=== PATIENT | female | born 1945 | race Caucasian/White ===

== ENCOUNTER 2019-03-05 11:52 | Inpatient (IN) | payer MEDICAID ==
[~2019-03-05] VITALS: Ht 149.9 cm; Wt 58.7 kg
[2019-03-05 11:55] VITALS: BP 178/79
[2019-03-05] MEDS ORDERED: IBUP-2213 PO (12:15)
[2019-03-05] MEDS ORDERED: VANCOMYCIN 1GM/DEXT 5% PREMIX 200 ML IV ONE (12:25)
[2019-03-05] MEDS ORDERED: MORPHINE SULFATE 4 MG/ML SYR IVP ONE (12:25)
[2019-03-05] MEDS ORDERED: VANCOMYCIN PER PHARMACY MC PRN ×2 (12:25→15:40)
[2019-03-05] MEDS ORDERED: VANCOMYCIN 1,000 MG in DEXTROSE 5% 250 ML IV SCH (12:45)
[2019-03-05 12:50] LABS: BASOPHILS # (AUTO) 0.1 K/uL (0.00-0.22); BASOPHILS % (AUTO) 1.1 % (0.0-2.0); EOSINOPHILS # (AUTO) 0.2 K/uL (0-0.4); EOSINOPHILS % (AUTO) 1.8 % (0.0-4.0); HEMATOCRIT 39.7 % (36-48); HEMOGLOBIN 12.7 g/dL (12.0-16.0); LYMPHOCYTES # (AUTO) 2.7 K/uL (2.5-16.5); LYMPHOCYTES % (AUTO) 23.8 % (20.5-51.1); MEAN CORPUSCULAR HEMOGLOBIN 29 pg (27-31); MEAN CORPUSCULAR HGB CONC 32 g/dL (33-37); MEAN CORPUSCULAR VOLUME 90.6 fL (80-94); MONOCYTES # (AUTO) 0.8 K/uL (0.8-1.0); MONOCYTES % (AUTO) 7.1 % (1.7-9.3); NEUTROPHILS # (AUTO) 7.5 K/uL (1.8-7.7); NEUTROPHILS % (AUTO) 66.2 % (42.2-75.2); PLATELET COUNT (AUTO) 434 K/uL (140-450); RED BLOOD CELL COUNT(AUTO) 4.39 MIL/uL (4.20-5.40); RED CELL DISTRIBUTION WIDTH 15.1 % (11.6-13.7); WHITE BLOOD COUNT (AUTO) 11.3 K/uL (4.8-10.8)
[2019-03-05 13:05] LABS: ALBUMIN 3.9 g/dL (3.4-5.0); ANION GAP 13.4 (8-16); ASPARTATE AMINOTRANSFERASE 22 U/L (15-37); CARBON DIOXIDE 28.3 mmol/L (21-32); CHLORIDE 99 mmol/L (98-107); CREATININE 1.7 mg/dL (0.6-1.3); GLUCOSE 129 mg/dL (74-106); SODIUM SERUM 135 mmol/L (136-145); TOTAL BILIRUBIN 0.2 mg/dL (0.0-1.0); UREA NITROGEN, BLOOD 26 mg/dL (7-18)
[2019-03-05 13:09] LABS: POTASSIUM 5.7 mmol/L (3.5-5.1)
[2019-03-05] MEDS ORDERED: DEXTROSE 50% 50 ML SYR IVP ONE (13:40)
[2019-03-05] MEDS ORDERED: PATIROMER CALCIUM SORBITEX 8.4 GM PKT PO ONE (13:40)
[2019-03-05] MEDS ORDERED: INSULIN REGULAR, HUMAN 100 UNIT/ML VIAL IVP ONE (13:40)
[2019-03-05] MEDS ORDERED: SODIUM BICARBONATE 8.4% PFS 50 MEQ/50 ML SYR IVP ONE (13:40)
[2019-03-05] MEDS: NACL 0.9% 1,000 ML IV SCH (13:57)
[2019-03-05] MEDS ORDERED: ACETAMINOPHEN 325 MG TAB PO PRN (14:00)
[2019-03-05] MEDS ORDERED: ONDANSETRON 4 MG/2 ML VIAL IM/IVP PRN (14:00)
[2019-03-05] MEDS ORDERED: MORPHINE SULFATE 2 MG/ML SYR IVP PRN (14:00)
[2019-03-05] MEDS ORDERED: DOCUSATE SODIUM 100 MG GELCAP PO PRN (14:00)
[2019-03-05 15:20] VITALS: BP 129/56
[2019-03-05] MEDS ORDERED: DEXTROSE 50% 50 ML SYR IVP PRN (15:40)
[2019-03-05] MEDS ORDERED: INSULIN LISPRO SLIDING SCALE 100 UNITS/ML VIAL SUBQ PRN (15:40)
[2019-03-05] MEDS: BLOOD GLUCOSE MONITORING 1 DEV DEV FS SCH ×2 (16:30→20:38)
[2019-03-05 19:41] LABS: PROTHROMBIN TIME 9.9 secs (10.8-13.4)
[2019-03-05 19:56] LABS: CHOL/HDL RATIO 5.1 (1-4.5); MAGNESIUM 2.1 mg/dL (1.8-2.4); PHOSPHORUS 4.2 mg/dL (2.5-4.9); THYROID STIMULATING HORMONE 5.63 uIU/mL (0.34-3.74)
[2019-03-05 20:00] VITALS: BP 135/85
[2019-03-06] VITALS: BP 138/55
[2019-03-06] MEDS: NACL 0.9% 1,000 ML IV SCH ×2 (01:10→10:48)
[2019-03-06 04:00] VITALS: BP 157/71
[2019-03-06] MEDS: BLOOD GLUCOSE MONITORING 1 DEV DEV FS SCH ×4 (06:23→21:00)
[2019-03-06 08:00] VITALS: BP 147/70
[2019-03-06 08:23] LABS: BASOPHILS # (AUTO) 0.1 K/uL (0.00-0.22); BASOPHILS % (AUTO) 1.2 % (0.0-2.0); EOSINOPHILS # (AUTO) 0.2 K/uL (0-0.4); EOSINOPHILS % (AUTO) 2.7 % (0.0-4.0); HEMATOCRIT 36.6 % (36-48); HEMOGLOBIN 11.9 g/dL (12.0-16.0); LYMPHOCYTES # (AUTO) 2.6 K/uL (2.5-16.5); LYMPHOCYTES % (AUTO) 28.7 % (20.5-51.1); MEAN CORPUSCULAR HEMOGLOBIN 29 pg (27-31); MEAN CORPUSCULAR HGB CONC 33 g/dL (33-37); MONOCYTES # (AUTO) 0.6 K/uL (0.8-1.0); MONOCYTES % (AUTO) 6.8 % (1.7-9.3); NEUTROPHILS # (AUTO) 5.6 K/uL (1.8-7.7); NEUTROPHILS % (AUTO) 60.6 % (42.2-75.2); PLATELET COUNT (AUTO) 397 K/uL (140-450); RED BLOOD CELL COUNT(AUTO) 4.06 MIL/uL (4.20-5.40); RED CELL DISTRIBUTION WIDTH 14.9 % (11.6-13.7); WHITE BLOOD COUNT (AUTO) 9.2 K/uL (4.8-10.8)
[2019-03-06 08:53] LABS: ANION GAP 15.9 (8-16); CARBON DIOXIDE 24.3 mmol/L (21-32); CHLORIDE 101 mmol/L (98-107); CREATININE 1.2 mg/dL (0.6-1.3); GLUCOSE 114 mg/dL (74-106); POTASSIUM 5.2 mmol/L (3.5-5.1); SODIUM SERUM 136 mmol/L (136-145); UREA NITROGEN, BLOOD 22 mg/dL (7-18)
[2019-03-06 09:07] LABS: MAGNESIUM 2.1 mg/dL (1.8-2.4); PHOSPHORUS 4.2 mg/dL (2.5-4.9)
[2019-03-06] MEDS ORDERED: DEXTROSE 50% 50 ML SYR IVP SCH (12:00)
[2019-03-06] MEDS ORDERED: INSULIN REGULAR, HUMAN 100 UNIT/ML VIAL IVP SCH (12:00)
[2019-03-06] MEDS ORDERED: PATIROMER CALCIUM SORBITEX 8.4 GM PKT PO SCH (12:00)
[2019-03-06] MEDS ORDERED: MIDAZOLAM 2 MG/2 ML VIAL ONE (12:19)
[2019-03-06] MEDS ORDERED: MEPERIDINE 25 MG/ML SYR ONE ×2 (12:20→13:53)
[2019-03-06] MEDS: DEXT 5% /NACL 0.9% 1,000 ML IV SCH (12:20)
[2019-03-06] MEDS ORDERED: fentaNYL 0.05 MG/ML VIAL ONE (12:20)
[2019-03-06] MEDS ORDERED: BUPIVACAINE-MPF/EPI 0.25% 30 ML VIAL INJ ONE (12:21)
[2019-03-06] MEDS: BUPIVACAINE-MPF/EPI 0.5% 30 ML VIAL INJ ONE ×2 (12:33→13:17)
[2019-03-06] MEDS ORDERED: MEPERIDINE 25 MG/ML SYR IVP PRN (13:50)
[2019-03-06 15:27] LABS: ANION GAP 12.1 (8-16); CARBON DIOXIDE 27.4 mmol/L (21-32); CHLORIDE 102 mmol/L (98-107); CREATININE 1.2 mg/dL (0.6-1.3); GLUCOSE 101 mg/dL (74-106); POTASSIUM 4.5 mmol/L (3.5-5.1); SODIUM SERUM 137 mmol/L (136-145); UREA NITROGEN, BLOOD 20 mg/dL (7-18)
[2019-03-06] MEDS: ASCORBIC ACID 500 MG TAB PO SCH (22:32)
[2019-03-07 00:15] LABS: BARBITURATE, URINE NEG. ng/ml (NEG <=200); BENZODIAZEPINE, URINE POS. ng/mL (NEG <=200); CANNABINOID, URINE NEG. ng/mL (NEG <=50); COCAINE, URINE NEG. ng/mL (NEG <=300); OPIATE, URINE NEG. ng/mL (NEG <=2000); PHENCYCLIDINE SCREEN,URINE NEG. ng/mL (NEG <=25)
[2019-03-07 00:32] LABS: APPEARANCE,URINE CLEAR (CLEAR); BILIRUBIN,URINE NEGATIVE (NEGATIVE); BLOOD, URINE NEGATIVE (NEGATIVE); COLOR,URINE YELLOW (YELLOW); LEUKOCYTE ESTERASE ,URINE NEGATIVE (NEGATIVE); NITRITE, URINE NEGATIVE (NEGATIVE); UGLUCOSE NEGATIVE (NEGATIVE)
[2019-03-07] MEDS: VANCOMYCIN 500 MG in DEXTROSE 5% 100 ML IV SCH (01:03)
[2019-03-07 01:58] VITALS: BP 135/57
[2019-03-07] MEDS: DEXT 5% /NACL 0.9% 1,000 ML IV SCH (05:00)
[2019-03-07] MEDS: BLOOD GLUCOSE MONITORING 1 DEV DEV FS SCH ×4 (06:41→21:41)
[2019-03-07] MEDS: ASCORBIC ACID 500 MG TAB PO SCH ×2 (09:53→21:33)
[2019-03-07] MEDS: MULTIVITAMIN 1 TAB PO SCH (09:54)
[2019-03-07] MEDS: HYDROcodone/APAP 7.5/325 MG 1 TAB PO PRN (09:54)
[2019-03-07] MEDS ORDERED: metFORMIN 500 MG TAB PO SCH (12:54)
[2019-03-07] MEDS: GAUZE TP SCH (13:00)
[2019-03-07] MEDS ORDERED: VANCOMYCIN HCL 750 MG in NACL 0.9% 250 ML IV SCH (13:00)
[2019-03-07] MEDS: NACL 0.9% 1,000 ML IV SCH (13:09)
[2019-03-07 13:49] LABS: ANION GAP 12.2 (8-16); CHLORIDE 101 mmol/L (98-107); CREATININE 1.1 mg/dL (0.6-1.3); GLUCOSE 142 mg/dL (74-106); POTASSIUM 4.2 mmol/L (3.5-5.1); SODIUM SERUM 138 mmol/L (136-145); UREA NITROGEN, BLOOD 17 mg/dL (7-18)
[2019-03-07 13:56] LABS: BASOPHILS # (AUTO) 0.1 K/uL (0.00-0.22); BASOPHILS % (AUTO) 1.1 % (0.0-2.0); EOSINOPHILS # (AUTO) 0.3 K/uL (0-0.4); EOSINOPHILS % (AUTO) 3.4 % (0.0-4.0); HEMATOCRIT 36.5 % (36-48); HEMOGLOBIN 11.8 g/dL (12.0-16.0); LYMPHOCYTES # (AUTO) 2.6 K/uL (2.5-16.5); LYMPHOCYTES % (AUTO) 31.4 % (20.5-51.1); MEAN CORPUSCULAR HEMOGLOBIN 29 pg (27-31); MEAN CORPUSCULAR HGB CONC 32 g/dL (33-37); MEAN CORPUSCULAR VOLUME 90.1 fL (80-94); MONOCYTES # (AUTO) 0.6 K/uL (0.8-1.0); MONOCYTES % (AUTO) 7.5 % (1.7-9.3); NEUTROPHILS # (AUTO) 4.7 K/uL (1.8-7.7); NEUTROPHILS % (AUTO) 56.6 % (42.2-75.2); PLATELET COUNT (AUTO) 370 K/uL (140-450); RED BLOOD CELL COUNT(AUTO) 4.05 MIL/uL (4.20-5.40); RED CELL DISTRIBUTION WIDTH 14.6 % (11.6-13.7); WHITE BLOOD COUNT (AUTO) 8.4 K/uL (4.8-10.8)
[2019-03-07 16:00] VITALS: BP 171/56
[2019-03-08] MEDS: VANCOMYCIN 500 MG in DEXTROSE 5% 100 ML IV SCH (00:09)
[2019-03-08 00:10] LABS: T4 (THYROXINE) 5.7 ug/dL (4.5-12.0)
[2019-03-08 00:35] VITALS: BP 150/74
[2019-03-08] MEDS: HYDROcodone/APAP 7.5/325 MG 1 TAB PO PRN (01:17)
[2019-03-08] MEDS: BLOOD GLUCOSE MONITORING 1 DEV DEV FS SCH ×4 (06:25→20:57)
[2019-03-08] MEDS ORDERED: MUPI2CRE22 NS (06:37)
[2019-03-08] MEDS ORDERED: MULT-405 PO (06:37)
[2019-03-08] MEDS ORDERED: CHLO118S2 TP (06:37)
[2019-03-08] MEDS ORDERED: METF500T PO (06:37)
[2019-03-08] MEDS ORDERED: VITC500 PO (06:37)
[2019-03-08] MEDS ORDERED: ACET-1182 PO (06:37)
[2019-03-08] MEDS ORDERED: SULF1TAB12 PO (06:39)
[2019-03-08] MEDS ORDERED: LACT10CA1 PO (06:39)
[2019-03-08 08:00] VITALS: BP 154/69
[2019-03-08] MEDS: MUPIROCIN CA NASAL 2% 1GM TUBE NS SCH ×2 (08:35→20:51)
[2019-03-08] MEDS: ASCORBIC ACID 500 MG TAB PO SCH ×2 (08:36→20:51)
[2019-03-08] MEDS: CHLORHEXADINE GLUC 2% CLOTH TP SCH (08:36)
[2019-03-08] MEDS: MULTIVITAMIN 1 TAB PO SCH (08:36)
[2019-03-08] MEDS: metFORMIN 500 MG TAB PO SCH (08:36)
[2019-03-08] MEDS ORDERED: HYDROCOLLOID DRESSING TP SCH ×2 (09:00)
[2019-03-08 10:37] LABS: BASOPHILS # (AUTO) 0.1 K/uL (0.00-0.22); BASOPHILS % (AUTO) 1.1 % (0.0-2.0); EOSINOPHILS # (AUTO) 0.5 K/uL (0-0.4); EOSINOPHILS % (AUTO) 4.5 % (0.0-4.0); HEMATOCRIT 38.3 % (36-48); HEMOGLOBIN 12.2 g/dL (12.0-16.0); LYMPHOCYTES # (AUTO) 2.9 K/uL (2.5-16.5); LYMPHOCYTES % (AUTO) 29.6 % (20.5-51.1); MEAN CORPUSCULAR HEMOGLOBIN 29 pg (27-31); MEAN CORPUSCULAR HGB CONC 32 g/dL (33-37); MEAN CORPUSCULAR VOLUME 90.6 fL (80-94); MONOCYTES # (AUTO) 0.7 K/uL (0.8-1.0); MONOCYTES % (AUTO) 6.7 % (1.7-9.3); NEUTROPHILS # (AUTO) 5.8 K/uL (1.8-7.7); NEUTROPHILS % (AUTO) 58.1 % (42.2-75.2); PLATELET COUNT (AUTO) 346 K/uL (140-450); RED BLOOD CELL COUNT(AUTO) 4.23 MIL/uL (4.20-5.40)
[2019-03-08 10:48] LABS: ANION GAP 14.7 (8-16); CARBON DIOXIDE 28.4 mmol/L (21-32); CHLORIDE 100 mmol/L (98-107); CREATININE 0.9 mg/dL (0.6-1.3); GLUCOSE 123 mg/dL (74-106); POTASSIUM 4.1 mmol/L (3.5-5.1); SODIUM SERUM 139 mmol/L (136-145); UREA NITROGEN, BLOOD 16 mg/dL (7-18)
[2019-03-08] MEDS: NACL 0.9% 1,000 ML IV SCH (11:38)
[2019-03-08] MEDS: GAUZE TP SCH (11:38)
[2019-03-08 16:00] VITALS: BP 173/79
[2019-03-08] MEDS ORDERED: LORazepam 0.5 MG TAB PO SCH (18:00)
[2019-03-09] VITALS: BP 150/69
[2019-03-09] MEDS: VANCOMYCIN 500 MG in DEXTROSE 5% 100 ML IV SCH (01:23)
[2019-03-09] MEDS: BLOOD GLUCOSE MONITORING 1 DEV DEV FS SCH (06:37)
[2019-03-09 07:48] VITALS: BP 141/66
[2019-03-09] MEDS: MUPIROCIN CA NASAL 2% 1GM TUBE NS SCH (10:40)
[2019-03-09] MEDS: HYDROcodone/APAP 7.5/325 MG 1 TAB PO PRN (10:44)
[2019-03-09] MEDS: metFORMIN 500 MG TAB PO SCH (10:44)
[2019-03-09] MEDS: ASCORBIC ACID 500 MG TAB PO SCH (10:45)
[2019-03-09] MEDS: MULTIVITAMIN 1 TAB PO SCH (10:46)
[2019-03-09] MEDS: CHLORHEXADINE GLUC 2% CLOTH TP SCH (10:48)
[2019-03-09] MEDS ORDERED: VANCOMYCIN 500 MG in DEXTROSE 5% 100 ML IV SCH (13:00)
[2019-03-11] MEDS ORDERED: SEVOFLURANE 250 ML BTL INH ONE (12:25)
[2019-03-11] MEDS ORDERED: PROPOFOL 200 MG/20 ML VIAL IV ONE (12:25)
== END 2019-03-09 11:40 | disposition home or self-care (01) | DRG 570 ==
LOC: MED 11:52 → MTU 13:57
PROVIDERS: ADMIT General Practice; ATTEND General Practice
PROC: 0JB50ZZ Excision of Left Neck Subcutaneous Tissue and Fascia, Open Approach (ICD-10-PCS; principal; 2019-03-06 12:00)
DX: L02.11 Cutaneous abscess of neck (principal); N17.0 Acute kidney failure with tubular necrosis; I96 Gangrene, not elsewhere classified; D68.59 Other primary thrombophilia; L03.221 Cellulitis of neck; E87.5 Hyperkalemia; F17.210 Nicotine dependence, cigarettes, uncomplicated; B95.62 Methicillin resistant Staphylococcus aureus infection as the cause of diseases classified elsewhere; E11.65 Type 2 diabetes mellitus with hyperglycemia; F41.9 Anxiety disorder, unspecified
CPT/HCPCS: 36415; 71045; 72040; 76536; 80048; 80053; 80202; 80305; 81003; 82150; 82553; 82948; 83036; 83605; 83690; 83735; 83880; 84100; 84436; 84443; 84484; 85025; 85610; 85651; 85730; 86140; 87040; 87070; 87081; 87086; 87186; 88304; 93005; 96374; 99285; J1815; J2175; J2250; J2270; J2405; J2704; J3010; J3370; J3490; J7030; J7042; J7060; Q0092